=== PATIENT | female | born 1955 | race Two or more races ===

== ENCOUNTER 2017-09-02 08:24 | Emergency (ER) | payer MEDICAID ==
[~2017-09-02] VITALS: Ht 160 cm; Wt 70.3 kg
[2017-09-02 09:08] VITALS: BP 182/88
[2017-09-02 10:19] LABS: Urine Bacteria FEW /hpf (None Seen); Urine Blood 1+ /uL (Negative); Urine Specific Gravity 1.021 (1.001-1.035); Urine WBC 1852 /hpf (0 - 5)
== END 2017-09-02 10:52 | disposition home or self-care (01) ==
LOC: ER 08:24
DX: J40 Bronchitis, not specified as acute or chronic (principal); N39.0 Urinary tract infection, site not specified; N20.0 Calculus of kidney; E11.9 Type 2 diabetes mellitus without complications; Z90.89 Acquired absence of other organs
CPT/HCPCS: 74176; 81001; 81002; 82962